=== PATIENT | female | born 1970 | race American Indian/Alaskan Native ===

== ENCOUNTER 2017-04-13 15:42 | Emergency (ER) | payer OTHER ==
[2017-04-13 16:17] LABS: Hematocrit 39.5 % (30.3-42.9); Hemoglobin 12.9 gm/dl (10.1-14.3); Mean Corpuscular HGB Conc 33 % (30-34); Mean Corpuscular Hemoglobin 27 pg (28-32); Mean Corpuscular Volume 82 fl (79-97); Platelet Count 124 K/mm3 (140-440); Red Blood Count 4.83 M/mm3 (3.65-5.03); Red Cell Distribution Width 15.5 % (13.2-15.2); White Blood Count 18.4 K/mm3 (4.5-11.0)
[2017-04-13 16:38] LABS: Albumin 3.7 g/dL (3.9-5); Albumin/Globulin Ratio 1.1 %; Bilirubin,Total 2.4 mg/dL (0.1-1.2); Calcium 8.3 mg/dL (8.4-10.2); Chloride 93.7 mmol/L (98-107); Potassium 3.6 mmol/L (3.6-5.0)
[2017-04-13] MEDS ORDERED: NACL 0.9% 1000 ML 1,000 ML IV ONE (17:52)
[2017-04-13] MEDS ORDERED: ZOFRAN IV ONE (17:52)
[2017-04-13] MEDS ORDERED: DILAUDID IV ONE (17:52)
--- NOTE | 2017-04-13 17:57 | Emergency Department Report ---
HPI - General Chief Complaint: Pain General Time Seen by Provider: 04/13/17 17:29 - HPI HPI: 46-year-old female presents to the emergency department, dropped off to be seen, with complaint of a 2 day history of right upper quadrant abdominal pain, right flank pain with radiation towards the back. She also complains of some generalized body aches, nausea and vomiting, and some intermittent chills and sweats without actually checking her temperature for a fever. She did not take anything for her symptoms prior to presentation. She has a past mental history of hypertension. She just moved up here from [facility] and therefore does not have a local primary care physician. No sick contacts at home. She denies any problems with bowel or bladder, vaginal bleeding or discharge. She has a tubal ligation. ED Past Medical Hx - Past Medical History Hx Hypertension: Yes - Surgical History Additional Surgical History: tubiligation - Social History Smoking Status: Current Every Day Smoker Substance Use Type: Alcohol ED Review of Systems ROS: Stated complaint: BODY ACHES AND PAIN RIGHT SIDE Other details as noted in HPI Constitutional: chills. denies: weakness Eyes: denies: eye pain, eye discharge, vision change ENT: denies: ear pain, throat pain Respiratory: denies: cough, shortness of breath, wheezing Cardiovascular: denies: chest pain, palpitations Gastrointestinal: abdominal pain, nausea, vomiting Genitourinary: denies: dysuria, discharge Musculoskeletal: myalgia. denies: joint swelling Skin: denies: rash, lesions Neurological: denies: weakness, numbness Physical Exam - Physical Exam Vital Signs: Vital Signs 04/13/17 15:53 Temperature 97.8 F Pulse Rate 104 H Respiratory 18 Rate Blood Pressure 129/75 O2 Sat by Pulse 100 Oximetry Physical Exam: GENERAL: The patient is well-developed well-nourished. HENT: Normocephalic. Atraumatic. Patient has moist mucous membranes. EYES: Extraocular motions are intact. Pupils equal reactive to light bilaterally. NECK: Supple. Trachea is midline. CHEST/LUNGS: Clear to auscultation. There is no respiratory distress noted. HEART/CARDIOVASCULAR: Regular. There is very mild tachycardia. There is no murmur. ABDOMEN: Abdomen is soft. There is some reproducible right upper quadrant abdominal pain to palpation. Unable to reproduce the flank pain to palpation. There is no guarding or rebound tenderness. No peritoneal signs. Patient has normal bowel sounds. There is no abdominal distention. SKIN: Skin is warm and dry. NEURO: The patient is awake, alert, and oriented. The patient is cooperative. The patient has no focal neurologic deficits. The patient has normal speech. MUSCULOSKELETAL: There is no tenderness or deformity. There is no evidence of acute injury. ED Course Vital Signs 04/13/17 15:53 Temperature 97.8 F Pulse Rate 104 H Respiratory 18 Rate Blood Pressure 129/75 O2 Sat by Pulse 100 Oximetry - Consultations Consultation #1: I attempted to transfer the patient to [facility] but I have yet to hear back. 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 [facility] was contacted and we have yet to hear back. In the meantime, I got a phone call back from Marivel Choudhary and the patient was accepted for transfer by the hospitalist, Dr. Judd to go to the [facility]. I also spoke with the urologist, Dr. Taylor, who has agreed to consult on this patient. 04/14/17 00:25 ED Medical Decision Making - Lab Data Result diagrams: 04/13/17 16:04 04/13/17 16:04 - Radiology Data Radiology results: report reviewed, image reviewed EXAM: US ABDOMEN LIMITED HISTORY: RUQ abd pain, elevated bilirubin COMPARISONS: None FINDINGS: Grayscale and color Doppler ultrasound evaluation of the right upper abdomen Liver is normal in size and contour. Hepatic parenchymal echogenicity is within normal limits. No parenchymal lesion identified. No intra or extrahepatic biliary ductal dilatation. The common duct measures approximately 4 millimeters in caliber. The gallbladder is incompletely distended. No cholelithiasis. Gallbladder wall measures approximately 2-3 millimeters in thickness. No abdominal ascites or free fluid in Mccormick's pouch. The right kidney measures up to 13 cm in length and demonstrates at least mild hydronephrosis. No echogenic shadowing foci to suggest nephrolithiasis. IMPRESSION: Unremarkable sonographic appearance of the nondistended gallbladder. There is at least mild right hydronephrosis. Consider CT for further evaluation. Transcribed By: OSMANI Dictated By: MYA MCCRAY MD Electronically Authenticated By: MYA MCCRAY MD Signed Date/Time: 04/13/17 7908 PROCEDURE: US RENAL BILAT TECHNIQUE: Real-time sonography in multiple planes of the kidneys, ureters and urinary bladder was performed with image documentation. CPT 84418 HISTORY: RUQ abd pain, renal failure COMPARISON: No prior studies are available for comparison. FINDINGS: RIGHT kidney: Mild increased echotexture. Moderate to severe right hydronephrosis length: 12.4 cm. LEFT kidney: Mild increased echotexture. Echo shadowing in the left renal pelvis may reflect left renal stone or stone debris... Length: 11.6cm. Bladder: Normal. IMPRESSION: Moderate severe hydronephrosis Possible stone debris left renal pelvis Defer to CT scan evaluation stone protocol. Mild medical renal disease. Transcribed By: WEP Dictated By: JACK VIDAL MD Electronically Authenticated By: JACK VIDAL MD Signed Date/Time: 04/13/17 9413 PROCEDURE: CT ABDOMEN PELVIS WO CON TECHNIQUE: Computerized axial tomography of the abdomen and pelvis was performed without intravenous contrast. HISTORY: Abd pain COMPARISON: No prior studies are available for comparison. FINDINGS: Visualized lower thorax: No significant abnormality. Liver: Normal size and attenuation. Spleen: Normal size and attenuation. Gallbladder and biliary system: Normal. Pancreas: Normal. Adrenals: Normal. Kidneys: Moderate to severe hydronephrosis of the right kidney with perinephric stranding. There is 0.9 cm right ureteral stone at the level of the sacrum, series 3, image 133. GI tract: Normal. Lymph nodes and mesentery: Normal. Vasculature: Normal. Bladder: Normal. Reproductive organs: Fibroid uterus. Peritoneum: No free fluid. Musculoskeletal structures: No significant abnormality. Other: None. IMPRESSION: Moderate to severe right hydronephrosis with ureteral stone. Fibroid uterus.. Transcribed By: BRP Dictated By: ARACELIS ORELLANA MD Electronically Authenticated By: ARACELIS ORELLANA MD Signed Date/Time: 04/13/17 2277 - Medical Decision Making Patient has a leukocytosis with left shift, acute kidney injury with renal failure, UTI, elevated bilirubin level. Blood and urine cultures were sent and the patient was started on some Rocephin. She has a elevating lactic acid level that started out at 2.8 and currently is 3.2. She was given some IV fluid resuscitation and pain and nausea control. Due to the right upper quadrant and flank discomfort, cholelithiasis, cholecystitis and nephrolithiasis were the top of my differential. Ultrasound showed hydronephrosis. Abdominal x-ray also showed some type of calcification to the right lower abdomen that was read by radiology as concern for possible appendicolith but also could be a renal stone. Nonetheless the patient needed a CT scan. This was done and it showed a 9 mm right distal ureter stone with moderate severe hydronephrosis. For this reason the patient will need a urology evaluation and we do not have urology at this facility. I spent multiple hours attempting to find a facility that has urology on-call and eventually was able to speak with Kenrick who accepted the patient for transfer to the [facility] and I spoke with the urologist as well who is willing to consult. We're waiting on a bed assignment. All the labs and imaging have been discussed with the patient as well as the plan for transfer to [facility] and she understands and agrees to the plan. - Differential Diagnosis cholelithiasis, cholecystitis, nephrolithiasis, appendicitis Critical Care Time: No Critical care attestation.: If time is entered above; I have spent that time in minutes in the direct care of this critically ill patient, excluding procedure time. ED Disposition Clinical Impression: Nephrolithiasis, Pyelonephritis Hydronephrosis Qualifiers: Hydronephrosis type: unspecified Qualified Code(s): N13.30 - Unspecified hydronephrosis UTI (urinary tract infection) Qualifiers: Urinary tract infection type: acute cystitis Hematuria presence: without hematuria Qualified Code(s): N30.00 - Acute cystitis without hematuria Acute renal failure Qualifiers: Acute renal failure type: unspecified Qualified Code(s): N17.9 - Acute kidney failure, unspecified Sepsis Qualifiers: Sepsis type: sepsis due to unspecified organism Qualified Code(s): A41.9 - Sepsis, unspecified organism Disposition: DC/TX-70 ANOTHER TYPE HLTHCARE Is pt being admited?: No Condition: Fair Referrals: MYA GIL MD [Primary Care Provider] - 3-5 Days Time of Disposition: 00:37
[2017-04-13 18:23] LABS: Bacteria,Urine 1+ /HPF (Negative); Bilirubin,Urine SM (Negative); Blood,Urine MOD (Negative); Ketones,Urine NEG (Negative); Leukocyte Esterase,Urine LG (Negative); Mucus,Urine FEW /HPF; Nitrite,Urine NEG (Negative)
[2017-04-13 18:24] LABS: WBC,Urine > 182.0 /HPF (0.0-6.0)
[2017-04-13] MEDS ORDERED: cefTRIAXone 1 GM in NACL 0.9% 20 ML IV ONE (18:27)
[2017-04-13 18:33] LABS: Anisocytosis 1+; Basophils % (Manual) 0 % (0.0-1.8); Blastocytes % (Manual) 0 %; Eosinophils % (Manual) 0 % (0.0-4.3)
[2017-04-13 18:34] LABS: Diff Status Complete; Platelet Estimate Consistent w Auto
--- NOTE | 2017-04-13 19:42 | Ultrasound Report ---
FINAL REPORT PROCEDURE: US RENAL BILAT TECHNIQUE: Real-time sonography in multiple planes of the kidneys, ureters and urinary bladder was performed with image documentation. CPT 19423 HISTORY: RUQ abd pain, renal failure COMPARISON: No prior studies are available for comparison. FINDINGS: RIGHT kidney: Mild increased echotexture. Moderate to severe right hydronephrosis length: 12.4 cm. LEFT kidney: Mild increased echotexture. Echo shadowing in the left renal pelvis may reflect left renal stone or stone debris... Length: 11.6cm. Bladder: Normal. IMPRESSION: Moderate severe hydronephrosis Possible stone debris left renal pelvis Defer to CT scan evaluation stone protocol. Mild medical renal disease.
--- NOTE | 2017-04-13 19:43 | XRay Report ---
FINAL REPORT EXAM: XR ABDOMEN 2V HISTORY: Abd pain TECHNIQUE: upright and supine views of the abdomen and pelvis PRIORS: None. FINDINGS: No pneumoperitoneum. Bowel gas pattern is nonobstructive. Fibroid related calcifications project over the pelvis. A 7 millimeter calcification projects over the right sacral ala. IMPRESSION: A 7 millimeter calcification projecting over the right sacral ala may represent an appendicolith. If patient has right lower quadrant pain, CT is recommended for further evaluation. No evidence of bowel obstruction. No pneumoperitoneum.
--- NOTE | 2017-04-13 20:09 | Ultrasound Report ---
FINAL REPORT EXAM: US ABDOMEN LIMITED HISTORY: RUQ abd pain, elevated bilirubin COMPARISONS: None FINDINGS: Grayscale and color Doppler ultrasound evaluation of the right upper abdomen Liver is normal in size and contour. Hepatic parenchymal echogenicity is within normal limits. No parenchymal lesion identified. No intra or extrahepatic biliary ductal dilatation. The common duct measures approximately 4 millimeters in caliber. The gallbladder is incompletely distended. No cholelithiasis. Gallbladder wall measures approximately 2-3 millimeters in thickness. No abdominal ascites or free fluid in Mccormick's pouch. The right kidney measures up to 13 cm in length and demonstrates at least mild hydronephrosis. No echogenic shadowing foci to suggest nephrolithiasis. IMPRESSION: Unremarkable sonographic appearance of the nondistended gallbladder. There is at least mild right hydronephrosis. Consider CT for further evaluation.
--- NOTE | 2017-04-13 21:31 | Cat Scan Report ---
FINAL REPORT PROCEDURE: CT ABDOMEN PELVIS WO CON TECHNIQUE: Computerized axial tomography of the abdomen and pelvis was performed without intravenous contrast. HISTORY: Abd pain COMPARISON: No prior studies are available for comparison. FINDINGS: Visualized lower thorax: No significant abnormality. Liver: Normal size and attenuation. Spleen: Normal size and attenuation. Gallbladder and biliary system: Normal. Pancreas: Normal. Adrenals: Normal. Kidneys: Moderate to severe hydronephrosis of the right kidney with perinephric stranding. There is 0.9 cm right ureteral stone at the level of the sacrum, series 3, image 133. GI tract: Normal. Lymph nodes and mesentery: Normal. Vasculature: Normal. Bladder: Normal. Reproductive organs: Fibroid uterus. Peritoneum: No free fluid. Musculoskeletal structures: No significant abnormality. Other: None. IMPRESSION: Moderate to severe right hydronephrosis with ureteral stone. Fibroid uterus..
[2017-04-13] MEDS ORDERED: SUBLIMAZE IV ONE (22:09)
[2017-04-13] MEDS ORDERED: SUBLIMAZE ONE (22:16)
[2017-04-14 03:43] VITALS: BP 110/62
== END 2017-04-14 03:46 | disposition other institution (70) ==
LOC: ED 15:42
DX: N13.6 Pyonephrosis (principal); A41.9 Sepsis, unspecified organism; N17.9 Acute kidney failure, unspecified; N30.00 Acute cystitis without hematuria; I10 Essential (primary) hypertension; F17.200 Nicotine dependence, unspecified, uncomplicated
CPT/HCPCS: 36415; 74020; 74176; 76705; 76770; 80053; 81001; 82140; 83690; 85007; 85025; 87040; 87076; 87086; 87186; 96361; 96374; 96375; 99285; J0696; J1170; J2405; J3010; J7030